=== PATIENT | female | born 1965 | race Caucasian/White ===

== ENCOUNTER 2021-02-26 21:01 | Emergency (ER) | payer OTHER ==
[~2021-02-26] VITALS: Ht 165.1 cm; Wt 61.7 kg
--- NOTE | 2021-02-26 21:22 | NUR ---
pt bibfriend c/o left wrist and ankle pain s/p fall while dancing. Pt [id number] breathing evenly and unlabored. Upon assessment pt has swelling on lateral side of left foot and swelling on both sides of left wrist. Pt atached to monitor and pox. PATTIE Fairchild at bedside for eval. Will continue to monitor.
--- NOTE | 2021-02-26 21:44 | NUR ---
xray at bedside
--- NOTE | 2021-02-26 22:00 | NUR ---
EMT AT BEDSIDE FOR ULNAR GUTTER SPLINT PLACEMENT
[2021-02-26] MEDS ORDERED: TRAM50TA2 PO (22:16)
[2021-02-26] MEDS ORDERED: IBUP-1955 PO (22:16)
--- NOTE | 2021-02-26 22:42 | NUR ---
CALLED KAILEE FOR IMAGES TO BE READ
[2021-02-26 23:06] VITALS: BP 148/78
--- NOTE | 2021-02-26 23:06 | NUR ---
Patient discharged to home in stable condition. Written and verbal after care instructions given. Patient verbalizes understanding of instruction.
== END 2021-02-26 23:07 | disposition home or self-care (01) ==
LOC: ER 21:01
DX: S52.592A Other fractures of lower end of left radius, initial encounter for closed fracture (principal); M79.672 Pain in left foot; W01.0XXA Fall on same level from slipping, tripping and stumbling without subsequent striking against object, initial encounter; Y93.41 Activity, dancing; Y92.252 Music hall as the place of occurrence of the external cause; Y99.8 Other external cause status
CPT/HCPCS: 73110; 73630-TC